=== PATIENT | female | born 1995 | race Caucasian/White ===

== ENCOUNTER 2017-06-08 22:34 | Emergency (ER) | payer SELFPAY ==
[~2017-06-08] VITALS: Ht 152.4 cm; Wt 89.1 kg
[~2017-06-08 22:34] MED LIST: 00186-0370-20 IH; FLOVENT 220MCG7.9 GM IH; P-D NATAL W/FOL1 TAB PO; PREDNISONE20 MG PO; PROAIR HFA0.09 MG/AC IH; RT SPIRIVA18 MCG IH
[2017-06-08 22:39] VITALS: BP 126/74; TEMP 99.8
[2017-06-08] MEDS ORDERED: PREDNISONE20 MG PO (23:33)
[2017-06-08 23:47] VITALS: PULSE 100
== END 2017-06-08 23:48 | disposition home or self-care (01) ==
LOC: COL.ER 22:34
DX: R21 Rash and other nonspecific skin eruption (principal); L25.9 Unspecified contact dermatitis, unspecified cause; J45.909 Unspecified asthma, uncomplicated; Z87.2 Personal history of diseases of the skin and subcutaneous tissue
CPT/HCPCS: J7512